=== PATIENT | female | born 1960 | race Caucasian/White ===

== ENCOUNTER 2022-01-08 13:33 | Outpatient (CLI) | payer OTHER, SELFPAY ==
[2022-01-08 18:10] LABS: SARS PCR* Negative SARS-CoV-2 (Negative)
== END 2022-01-08 13:34 | disposition home or self-care (01) ==
LOC: LONREF 13:34
PROVIDERS: PCP Family Medicine; Visit Provider Family Medicine
DX: Z11.52 Encounter for screening for COVID-19 (principal); R10.9 Unspecified abdominal pain
CPT/HCPCS: 87635

== ENCOUNTER 2022-02-01 09:13 | Outpatient (CLI) | payer OTHER, SELFPAY ==
--- NOTE | 2022-02-01 09:15 | CRLHL7_ITS ---
For Patients: As a result of the Century Cures Act, medical imaging exams and procedure reports are released immediately into your electronic medical record. You may view this report before your referring provider. If you have questions, please contact your health care provider. BILATERAL SCREENING MAMMOGRAM WITH COMPUTER-AIDED DETECTION AND TOMOSYNTHESIS TECHNIQUE: CC and MLO views were obtained. These mammographic images have been obtained using full-field digital technique. These mammographic images were interpreted with the benefit of computer-aided detection. Breast Tomosynthesis was used in this interpretation. COMPARISON FILM: 12/29/20, 12/24/19, 12/22/18. FINDINGS: The breasts are heterogeneously dense, which may obscure small masses IMPRESSION: There is no radiographic evidence for malignancy. ASSESSMENT: BI-RADS Category 2: Benign RECOMMENDATION: Routine screening mammogram in 1 year. A lay language report of this examination will be provided to the patient. Eliazar Angel M.D. Diagnostic Radiologist [email or web address] CALIN/Dictated by: Eliazar Angel MD @ 02/01/2022 11:41:00 AM (Electronically Signed)
--- OUTSIDE RECORDS SUMMARY | 2022-02-01 09:16 | XMS_ITS | Clinical Summary ---
:1960 Author Organization [facility] [place] [address] Care Team Providers Name Role Phone Mt Godinez MD Primary Care Provider Allergies Not on File Medications Medication Sig Dispensed Refills Start Date End Date Status atenolol (TENORMIN) 50 Take 50 mg by 0 07/15/2018 Active mg tablet mouth one time. atorvastatin (LIPITOR) Take 20 mg by 0 07/08/2018 Active 20 mg tablet mouth once daily. chlorthalidone Take 25 mg by 0 03/18/2018 Active (HYGROTON) 25 mg tablet mouth once daily. Taking half a pill per day anastrozole (ARIMIDEX) 1 Take 1 mg by 0 09/09/2018 Active mg tablet mouth once daily. levothyroxine Take 50 tablets 0 07/14/2018 Active (SYNTHROID) 50 mcg by mouth once tablet daily. zolpidem (AMBIEN) 5 mg Take 5 mg by 0 Active tablet mouth one time if needed. Active Problems Not on file Social History Tobacco Use Types Packs/Day Years Used Date Never Smoker Smokeless Tobacco: Never Used Tobacco Cessation: Counseling Given: Yes Sex Assigned at Date Recorded Not on file Obstetrics History Last Filed Vital Signs Vital Sign Reading Time Taken Comments Blood Pressure 138/71 09/10/2018 8:54 AM CDT Pulse 56 09/10/2018 8:54 AM CDT Temperature - - Respiratory Rate - - Oxygen Saturation 97% 09/10/2018 8:54 AM CDT Inhaled Oxygen Concentration - - Weight 93 kg (205 lb) 09/10/2018 8:54 AM CDT Height - - Body Mass Index - - Plan of Treatment Health Maintenance Due Date Last Done Comments COVID-19 vaccine series (#1) 1960 Tdap 1969 Depression screening for age 12+ 1970 BMI (ht and wt on same day) for age 1002/11/1976 18+ Hepatitis C screening for age 18-79 02/11/1976 Tetanus booster 1978 Colonoscopy through age 75 2003 Lipids for age 45-75 2003 Mammogram for age 45-75 08/27/2007 08/26/2006, 09/20/2005, 08/23/2005 Zoster (shingles) series for age 50+ 02/11/2008 (1 of 2) Pap test for age 21-65 03/27/2021 03/27/2018, 03/27/2018, 12/02/2014 Influenza for age 50-64 12/14/2021 Results Not on filefrom Last 3 Months Insurance Payer Benefit Plan / Subscriber ID Effective Dates Phone Addre ss Type Group PREFERRED ONE PREFERRED ONE [id number] 2013-Present [address] [place] [address] [employer] LINK TPA [id number] [phone] [place] [address] Care Teams Sandblast Or Shotblast Equipment Tender Relationship Specialty Start Date End Date Mt Godinez MD PCP - General Family Practice 02/06/16
== END 2022-02-01 09:14 | disposition home or self-care (01) ==
LOC: MAMMO 09:14
PROVIDERS: PCP Family Medicine; Visit Provider Family Medicine
DX: Z12.31 Encounter for screening mammogram for malignant neoplasm of breast (principal); R92.2 Inconclusive mammogram
CPT/HCPCS: 77063; 77067

== ENCOUNTER 2022-03-12 13:11 | Outpatient (CLI) | payer OTHER, SELFPAY ==
--- OUTSIDE RECORDS SUMMARY | 2022-03-12 13:21 | XMS_ITS | Clinical Summary ---
:1960 Author Organization [facility] [place] [address] Care Team Providers Name Role Phone Mt [...] 1969 Depression screening for age 12+ 1970 HIV for age 15-65 1973 BMI (ht and wt on same day) [...] ss Type Group PREFERRED ONE PREFERRED ONE [id number] 2013-Present [address] [place] [address] [employer] LINK TPA [id number] [address] [phone] [place] [address] Care Teams Pin Ticket Machine Operator Relationship Specialty Start Date End Date Mt Godinez MD PCP - General Family Practice 02/06/16
[2022-03-12 17:44] LABS: Albumin* 4.5 g/dL (3.3-5.0); Chloride* 108 mmol/L (96-114); Potassium* 4.2 mmol/L (3.6-5.1); Sodium* 142 mmol/L (135-149)
[2022-03-12 17:46] LABS: Bilirubin Total* 0.8 mg/dL (0.1-1.5); Creatinine* 0.6 mg/dL (0.5-1.5); Estimated Glomerular Filt Rate 100 ml/min
[2022-03-12 17:47] LABS: Alanine Aminotransferase* 29 U/L (4-35); Alkaline Phosphatase* 98 U/L (40-150); Aspartate Amino Transferase* 30 U/L (12-35); Blood Urea Nitrogen* 25 mg/dL (7-30); Carbon Dioxide* 26 mmol/L (20-32); Glucose* 96 mg/dL (60-115); Total Protein* 6.8 g/dL (6.0-8.3)
[2022-03-12 17:48] LABS: Calcium* 9.8 mg/dL (8.4-10.6)
[2022-03-12 18:04] LABS: Vitamin D 25 Hydroxy* 26 ng/mL (30-80)
== END 2022-03-12 13:12 | disposition home or self-care (01) ==
PROVIDERS: PCP Family Medicine; Visit Provider Nurse Practitioner Family
DX: C50.919 Malignant neoplasm of unspecified site of unspecified female breast (principal)
CPT/HCPCS: 80053; 82306

== ENCOUNTER 2022-03-26 07:54 | Outpatient (CLI) | payer OTHER, SELFPAY ==
--- OUTSIDE RECORDS SUMMARY | 2022-03-26 07:57 | XMS_ITS | Clinical Summary ---
:1960 Author Organization [facility] [place] [address] Care Team Providers Name Role Phone Mt [...] Tobacco Use Types Packs/Day Years Used Date Smoking Tobacco: Never Smokeless Tobacco: Never Tobacco Cessation: Counseling Given: Yes Sex Assigned [...] ss Type Group PREFERRED ONE PREFERRED ONE [id number] 2013-Present [address] [place] [address] [employer] LINK TPA [id number] [address] [phone] [place] [address] Care Teams Catering And Events Manager Relationship Specialty Start Date End Date Mt Godinez MD PCP - General Family Practice 02/06/16
[2022-03-26 14:01] LABS: Cholesterol* 177 mg/dL (90-199)
[2022-03-26 14:02] LABS: HDL Cholesterol* 46 mg/dL (>=50); LDL Cholesterol Calculated 98 mg/dL (<100); Triglycerides* 163 mg/dL (40-149)
== END 2022-03-26 07:55 | disposition home or self-care (01) ==
PROVIDERS: PCP Family Medicine; Visit Provider Family Medicine
DX: E03.9 Hypothyroidism, unspecified (principal); E78.5 Hyperlipidemia, unspecified
CPT/HCPCS: 80061; 84443

== ENCOUNTER 2022-04-11 06:27 | Day surgery (SDC) | payer OTHER, SELFPAY ==
[2022-04-11] VITALS (11 sets, daily range): BP systolic 128–179; BP diastolic 67–93; PULSE 60–72; RESP 16; TEMP 36.3–37; O2SAT 97–100
[2022-04-11] MEDS: lidocaine HCL 2 % MULTIDOSE 20 ML VIAL INJECTION (07:31)
[2022-04-11] MEDS: BUPIVACAINE 0.5% 30 ML 10 ML INJECTION (07:31)
--- NOTE | 2022-04-11 08:11 | P.ORPRC_ITS ---
Procedure Note Date of procedure: 04/11/22 Procedure: Preop diagnosis: Left upper extremity de quervain's tenosynovitis Postop diagnosis: Left upper extremity de Quervain tenosynovitis Procedure: Left upper extremity 1st dorsal compartment release Anesthesia: Local Surgeon: Federico Gaxiola MD assistant women's soccer coach: ZULMA Ruiz EBL: 0 mL Complications: None Specimens: None Drains: None Indications: The patient has a history of left upper extremity de Quervain tenosynovitis. Despite appropriate nonoperative management consisting of bracing, activity modification, injections and occupational therapy they continue to have symptoms. Operative intervention was offered. The risks, benefits alternatives and expected outcomes were discussed in detail. These included but were not limited to: Infection, bleeding, injury to blood vessel or nerve, venous thromboembolism. All questions were answered to their satisfaction. The patient was placed supine on the operating room table. Local anesthesia was established with 0.5% Marcaine without epinephrine and 2% lidocaine without epinephrine. The hand was prepped and draped in usual sterile fashion. The limb was elevated the forearm pneumatic tourniquet was inflated to 250 mm of mercury. A longitudinal incision was made centered over the 1st dorsal compartment. Subcutaneous dissection was taken with tenotomy scissors to the extensor retinaculum. The retinaculum was divided longitudinally with the 15 blade. There is a significant amount of inflamed tenosynovium surrounding the tendons. This was aggressively debrided with the tenotomy scissors. A portion of the dorsal retinaculum was excised. There were no septae a dividing the compartment. The wound was irrigated with normal saline. Subcutaneous tissues were closed with a 3-0 Vicryl, skin was closed with a 4-0 Stratafix. Glue was used to seal the skin. The tourniquet was released A soft dressing was applied, sponge and needle counts were correct x 2. The patient tolerated the procedure well, there were no apparent complications. They were sent to same day surgery in satisfactory condition. Plan: Use of the hand as tolerates. Discontinue the intraoperative dressing on postoperative day 3 and may get the wound wet as tolerates. She can use her thumb spica brace as needed for pain. Follow up in the office in 1-2 weeks for a wound check and suture removal.
== END 2022-04-11 08:45 | disposition home or self-care (01) ==
PROVIDERS: PCP Family Medicine; Visit Provider Orthopaedic Surgery
PROC: (CPT 25000; principal; 2022-04-11 07:30)
DX: M65.4 Radial styloid tenosynovitis [de Quervain] (principal)
CPT/HCPCS: 25000; A4580; J3490

== ENCOUNTER 2022-10-22 11:54 | Outpatient (CLI) | payer OTHER, SELFPAY | END 2022-10-22 11:55 | disposition home or self-care (01) | PROVIDERS: PCP Family Medicine; Visit Provider Internal Medicine Hematology & Oncology | DX: I10 Essential (primary) hypertension (principal); E78.5 Hyperlipidemia, unspecified; E03.9 Hypothyroidism, unspecified; E55.9 Vitamin D deficiency, unspecified | CPT/HCPCS: 80053; 82306; 82652 ==

== ENCOUNTER 2022-10-25 08:50 | Outpatient (RCR) | payer OTHER, SELFPAY ==
--- NOTE | 2023-01-10 13:09 | ONC.NURNOTE ---
Dexa scan results reviewed by Tania WASHBURN. Normal bone density.
== END 2023-04-23 23:59 | disposition home or self-care (01) ==
LOC: CCIC 08:50
PROVIDERS: PCP Family Medicine; Visit Provider Physician Assistant
DX: C50.912 Malignant neoplasm of unspecified site of left female breast (principal); Z17.0 Estrogen receptor positive status [ER+]; Z79.811 Long term (current) use of aromatase inhibitors; E55.9 Vitamin D deficiency, unspecified
CPT/HCPCS: 99212; 99215

== ENCOUNTER 2022-12-13 12:29 | Outpatient (CLI) | payer OTHER, SELFPAY ==
--- NOTE | 2022-12-13 13:00 | CRLHL7_ITS ---
For Patients: As a result of the Century Cures Act, medical imaging exams and procedure reports are released immediately into your electronic medical record. You may view this report before your referring provider. If you have questions, please contact your health care provider. DXA BONE MINERAL DENSITY STUDY Reason for exam: Monitor on aromatase inhibitors. Current height (in): 64. Weight (lb): 199. Menopause age: 53. Ethnicity: White. 1. Have you had a previous hip or vertebral fracture? No. 2. Have you had any fractures during your adult life which did not result from significant trauma (e.g., auto accident)? No. 3. Did either of your parents have a hip fracture? No. 4. Do you smoke? No. 5. Have you ever taken Glucocorticoids? No. 6. Do you have rheumatoid arthritis? No. 7. Do you have secondary osteoporosis? No. 8. Do you drink 3 or more alcoholic drinks per day? No. 9. Are you being treated for osteoporosis? No. 10. Have you ever taken any of the following medications: Actonel, Evista, Fosamax, Miacalcin, Reclast, Boniva, Forteo, HRT (i.e., estrogen/hormone therapy), Protelos, Prolia, Vitamin D, Calcium, other ??? please specify. ANSWER: Yes, vitamin D and calcium. 11. Do you have any of the following medical conditions: Anorexia or bulimia, asthma or emphysema, end stage renal disease, hyperparathyroidism, any seizure disorders, cancer, inflammatory bowel diseases, hysterectomy, other ??? please specify. ANSWER: Yes, cancer. 12. What was your maximum height (inches)? 64. 13. Do you perform weight bearing exercise regularly? Yes. 14. Do you regularly consume dairy products? Yes. 15. Do you drink caffeinated beverages? No. If female: 16. At what age did your period start? 11. 17. Are you premenopausal? No. 18. How many full-term pregnancies have you had? 3. 19. Have you ever missed your period for more than 6 months in a row (not including or menopause)? Yes. TECHNIQUE: Bone mineral density study was performed using the Cardiocore Wi. FINDINGS: The results of the study expressed as bone mineral density (BMD) are as follows: Lumbar spine L1 to L3: BMD: 1.081 g/cm2. T-score: 0.6. Z-score: 2.3 Neck Left: BMD: 0.772 g/cm2. T-score: -0.7. Z-score: 0.8 Right: BMD: 0.783 g/cm2. T-score: -0.6. Z-score: 0.9 Total Left: BMD: 0.980 g/cm2. T-score: 0.3. Z-score: 1.5 Right: BMD: 0.971 g/cm2. T-score: 0.2. Z-score: 1.4 IMPRESSION: Normal bone density. *Comparison exams done prior to 09/2019 were performed on different unit, Neptune. COMPARISON: Compared with scan of 09/01/2020, the bone mineral density has increased by 1.5 percent at the spine and decreased by 2.1 percent at the hip. Compared with scan of 06/16/2018, the bone mineral density has decreased by 2.0 percent at the spine and decreased by 4.9 percent at the hip. Eliazar Angel M.D. Diagnostic Radiologist [email or web address] DELMA/tapan phelan/Dictated by: Eliazar Angel MD @ 12/13/2022 2:53:00 PM (Electronically Signed)
== END 2022-12-13 12:30 | disposition home or self-care (01) ==
LOC: RAD 12:31
PROVIDERS: PCP Family Medicine; Visit Provider Physician Assistant
DX: Z51.81 Encounter for therapeutic drug level monitoring (principal); Z79.811 Long term (current) use of aromatase inhibitors
CPT/HCPCS: 77080

== ENCOUNTER 2023-01-24 09:53 | Outpatient (CLI) | payer OTHER, SELFPAY ==
--- NOTE | 2023-01-24 10:15 | CRLHL7_ITS ---
For Patients: As a result of the Century Cures Act, medical imaging exams and procedure reports are released immediately into your electronic medical record. You may view this report before your referring provider. If you have questions, please contact your health care provider. BILATERAL SCREENING MAMMOGRAM WITH COMPUTER-AIDED DETECTION AND TOMOSYNTHESIS TECHNIQUE: CC and MLO views were obtained. These mammographic images have been obtained using full-field digital technique. These mammographic images were interpreted with the benefit of computer-aided detection. Breast tomosynthesis was used in this interpretation. COMPARISON FILM: 02/01/2022, 12/29/2020, 12/24/2019. FINDINGS: There are scattered areas of fibroglandular density. IMPRESSION: There is no radiographic evidence for malignancy. ASSESSMENT: BI-RADS Category 2: Benign RECOMMENDATION: Routine screening mammogram in 1 year. A lay language report of this examination will be provided to the patient. ELIAZAR LUIS M.D. Diagnostic Radiologist [email or web address] DELMA/brandon Transcribed: 01/24/2023, 6:[address]/Dictated by: Eliazar Luis MD @ 01/24/2023 1:34:00 PM (Electronically Signed)
== END 2023-01-24 09:54 | disposition home or self-care (01) ==
LOC: MAMMO 09:53
PROVIDERS: PCP Family Medicine; Visit Provider Family Medicine
DX: Z12.31 Encounter for screening mammogram for malignant neoplasm of breast (principal)
CPT/HCPCS: 77063; 77067

== ENCOUNTER 2023-02-19 13:12 | Outpatient (CLI) | payer OTHER, SELFPAY | END 2023-02-19 13:13 | disposition home or self-care (01) | PROVIDERS: PCP Family Medicine; Visit Provider Family Medicine | DX: I10 Essential (primary) hypertension (principal); E78.5 Hyperlipidemia, unspecified; E03.9 Hypothyroidism, unspecified; E55.9 Vitamin D deficiency, unspecified; E78.00 Pure hypercholesterolemia, unspecified; Z13.21 Encounter for screening for nutritional disorder | CPT/HCPCS: 80061; 82607; 84443 ==

== ENCOUNTER 2024-01-28 10:35 | Outpatient (CLI) | payer MEDICARE, BC, SELFPAY ==
--- OUTSIDE RECORDS SUMMARY | 2024-01-29 10:27 | XMS_ITS ---
Author Organization [facility] Address [address] [place] [address] Care Team Providers Care Medical Record Transcriber Name Role Phone Unavailable Unavailable Unavailable Surgery Details Not on file Complications Check Surgery Details section. Procedure Estimated Blood Loss Check Surgery Details section. Procedure Findings Check Surgery Details section. Procedure Specimens Taken Check Surgery Details section.
--- OUTSIDE RECORDS SUMMARY | 2024-01-29 10:27 | XMS_ITS | Clinical Summary ---
Author Organization [facility] Address [address] [place] [address] Care Team Providers Care Office Mover Name Role Phone Elsewhere, Pcp Primary Care Provider Unavailabl e Source Comments Patient records contain information from all sites at [facility]. For routine questions regarding patient records, call [phone] during business hours, M-F 8:00 AM - 5:00 PM Central Time. Record requests for emergency care only can be directed to [phone] at any time.[facility] Allergies No known active allergies Medications [...] from 11/19/2017:Stage IA(pT1c, pN0(sn), cM0, G3, ER+, [place]+, HER2-, Oncotype DX score: 13) - Signed by Boris Rowan M.D. on 12/26/2017 Clinical: Unsigned Encounters Date Type Department Care Team Description 01/16/2024 11:28 AM CDT - 01/16/2024 12:48 PM CDT Emergency [facility] [address] [place] [address] Zoila Arreola, SOCIETY REPORTER, C.N.P. Infection Upper Respiratory Viral (Primary Dx); [...] Most Recently Relevant to Health Maintenance Insurance [facility] MEDICARE Care Teams Office Mover Relationship Specialty Start Date End Date Elsewhere, Pcp PCP - General Internal Medicine 01/16/24
--- OUTSIDE RECORDS SUMMARY | 2024-01-29 10:27 | XMS_ITS | Referral Summary ---
Author Organization [facility] Address [address] [place] [address] Care Team Providers Care Paint Technician Name Role Phone Elsewhere, Pcp Primary Care Provider Unavailabl e Source Comments Patient records contain information from all sites at [facility]. For routine questions regarding patient records, call [phone] during business hours, M-F 8:00 AM - 5:00 PM Central Time. Record requests for emergency care only can be directed to [phone] at any time.[facility] Encounters Date Type Department Care Team Description 01/16/2024 11:28 AM CDT - 01/16/2024 12:48 PM CDT Emergency [facility] [address] [place] [address] Zoila Arreola, ROSE, C.N.P. Infection Upper Respiratory [...] from 11/19/2017:Stage IA(pT1c, pN0(sn), cM0, G3, ER+, [place]+, HER2-, Oncotype DX score: 13) - Signed [...] MG Mammogram (11/08/2017 10:20 AM CDT) Narrative IIME - 12/09/2017 9:24 AM CDT This order [...] System IMG BI PROCEDURES Final R esult IIME NA from Last 3 Months or Most Recently Relevant to Health Maintenance Insurance [facility] MEDICARE Care Teams Paint Technician Relationship Specialty Start Date End Date Elsewhere, Pcp PCP - General Internal Medicine 01/16/24
--- OUTSIDE RECORDS SUMMARY | 2024-01-29 10:27 | XMS_ITS ---
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 on 12/26/2017 Clinical: Unsigned Current [...] On Elapsed Days Session Dose Total Dose [id number] 01/31/2018 25 200 cGy 5,005 cGy
--- OUTSIDE RECORDS SUMMARY | 2024-01-29 10:27 | XMS_ITS | Clinical Summary ---
Author Organization [facility] Address [place], [place] [address] Care Team Providers Care Veneer Manufacturer Name Role Phone Mt Godinez MD Primary Care Provider [phone] Medications Medication Sig Dispensed Refills Start Date [...] Procedure Name Priority Date/Time Associated Diagnosis Comments ANTIQUE FURNITURE REPAIRER THIN PREP PAP SCREEN IMAGED Routine 03/27/2018 11:45 AM BLENDER / COOK XR MAMMO SCREENING BILATERAL (IA) Routine 08/26/2006 2:35 PM CDT Screening Mammogram Other from Last 3 Months or Most Recently Relevant to Health Maintenance Results * ANTIQUE FURNITURE REPAIRER THIN PREP PAP SCREEN IMAGED (03/27/2018 11:45 AM BLENDER / COOK) Case Report Gynecologic Cytology Report ? Case: [id number] ? Authorizing Provider: ??Consuelo Jason MD ? Collected: ? 03/27/2018 1145 ? First Screen: ?Anum Middleton ?Received: ?03/28/2018 1545 ? Specimen: ?ANTIQUE FURNITURE REPAIRER ThinPrep Vial Screening, Cervical/Vaginal ? 04/14/2018 2:09 PM [facility] [facility] ENTRDC LABORATORY INTERPRETATION/ RESULT NEGATIVE FOR INTRAEPITHELIAL LESION OR MALIGNANCY (NIL) (none) 04/14/2018 2:09 PM [facility] ENTRAL LABORATORY IMEN ADEQUACY Satisfactory for evaluation Endocervical component present 04/14/2018 2:09 PM [facility] EN[facility]AL LABOR[facility]ORY HPV REQUEST HPV and PAP 04/14/2018 2:09 PM [facility] Date of LMP 04/14/2018 2:09 PM [facility] EN[facility] LABORATORY Comment:>5years Last Pap Date 12/02/2014 04/14/2018 2:09 PM BLENDER / COOK [facility] ENTRAL LABORATORY Last Pap Result NIL 8 2:09 PM [facility] EN[facility]AL LABORATORY Menstrual Status 04/14/2018 2:09 PM [facility] EN[facility] LABOR[facility]ORY Comment:menopause Automated Review Successful 04/14/2018 2:09 PM [facility] EN[facility]AL LABORATORY Comment:Specimen processed s uccessfully by automated audit spec device, ThinPrep Imaging System, [employer] ANCILLARY TESTING ANTIQUE FURNITURE REPAIRER HPV Ordered, Please see separate report 04/14/2018 2:09 PM [facility] EN[facility]DC LABORATORY Note The pap test is a [...] lesions. Cytology is screened and interpreted at [facility], Central Laboratory - [address] [facility] [address] [address] and [facility] - [address]; [place] [address] and [facility] - [address]; [place] [address] and [facility] [address]; [place] [address] 04/14/2018 2:09 PM BLENDER / COOK [facility] LABORATORY-C ENTRAL LABORATORY Other (Cervical/Vagina l) 03/27/2018 11:45 AM BLENDER / COOK 03/28/2018 3:45 PM BLENDER / COOK Consuelo Jason MD PATHOLOGY/CYTOLOGY [facility] LABORAT[facility]-CENTRAL LABORATORY [address] [place] [address], [place] * XR MAMMO SCREENING BILATERAL * (08/26/2006 2:35 PM CDT) Anatomical Region Laterality Modality BREASTS, Breast Left, Breast Right Bilateral Mammography 08/26/2006 2:35 PM CDT Narrative 08/27/2006 10:23 AM CDT SCREENING BILATERAL MAMMOGRAM CLINICAL INDICATIONS This is an asymptomatic 46-year-old patient. ?? FINDINGS The study is compared to a previous mammogram from [facility] dated 08/23/05. Mammographically, the breast tissue is average. There are no suspicious masses or branching calcifications that are suspicious for malignancy. IMPRESSION Benign finding. ??There is no radiographic evidence for malignancy. Recommend annual mammograms. The [facility] will provide results to the patient at the time of the appointment or by postcard through the mail. F Procedure Note Gibran Senior MD - 08/27/2006 SCREENING BILATERAL MAMMOGRAM CLINICAL INDICATIONS This is an asymptomatic 46-year-old patient. FINDINGS The study is compared to a previous mammogram from [facility] dated 08/23/05. Mammographically, the breast tissue is average. There are no suspiciousmasses or branching calcifications that are suspicious for malignancy. IMPRESSION Benign finding. There is no radiographic evidence for malignancy. Recommend annual mammograms. The [facility] will provide results to thepatient at the time of the appointment or by postcard through the mail. [facility] Humberto Ribeiro MD MAMMO from Last 3 Months or Most Recently Relevant to Health Maintenance Care Teams Veneer Manufacturer Relationship Specialty Start Date End Date Mt Godinez MD PCP - General Family Practice 02/06/16
--- OUTSIDE RECORDS SUMMARY | 2024-01-29 10:27 | XMS_ITS | Encounter Summary ---
Author Organization [facility] Address [address] [place] [address] Care Team Providers Care Instructional Systems Specialist Name Role Phone Elsewhere, Pcp Primary Care [...] Encounter Details Date Type Department Care Team ([facility] st Contact Info) Description 01/16/2024 11:28 AM CDT - 01/16/2024 12:48 PM CDT Emergency [facility] [address] [place] [phone] Zoila Arreola, TESTER WASTE DISPOSAL LEAKAGE, C.N.P. [address] [place] [phone] Infection Upper Respiratory Viral (Primary Dx); Cough [...] sent through Care Everywhere. * Cough Adult (Cambodian) documented in this encounter Medications at Time [...] for her grandchildren 1 of whom is [id number] this coming weekend. The following portions of [...] discussed and reviewed in AVS. Discharged from [facility] in stable condition. Zoila Arreola [...] oreffusions. IMPRESSION: Normal chest. Zoila M Maxwell TESTER WASTE DISPOSAL LEAKAGE, C.N.P. IMG DIAGNOSTIC IMAGI NG PROCEDURES Final Result documented in this encounter Visit Diagnoses Diagnosis Infection Upper Respiratory Viral- Primary Cough Acute Candidiasis Oral documented in this encounter Care Teams Instructional Systems Specialist Relationship Specialty Start Date End Date Elsewhere, Pcp PCP - General Internal Medicine 01/16/24 documented as of this encounter
== END 2024-01-28 10:36 | disposition home or self-care (01) ==
LOC: NFLDREF 01-29 10:25
PROVIDERS: PCP Family Medicine; Referring Provider Family Medicine; Visit Provider Family Medicine
DX: E78.5 Hyperlipidemia, unspecified (principal); I10 Essential (primary) hypertension; E55.9 Vitamin D deficiency, unspecified; E78.00 Pure hypercholesterolemia, unspecified; E03.9 Hypothyroidism, unspecified
CPT/HCPCS: 80053; 80061; 82306; 84443

== ENCOUNTER 2024-01-28 11:16 | Outpatient (CLI) | payer MEDICARE, BC, SELFPAY ==
--- OUTSIDE RECORDS SUMMARY | 2024-01-28 11:20 | XMS_ITS | Encounter Summary ---
Author Organization [facility] Address [address] [place] [address] Care Team Providers Care Ply Cutter Name Role Phone Elsewhere, Pcp Primary Care Provider Unavailabl e Reason for Visit * Reason Comments Cough Pt presents with sabra oing cough for 1 1/2 weeks. Pt states had temp to 101 on Saturday and Saturday. No fever today, denies chills. Cough is mostly bothersome at night. Pt did vomit last night after a large coughing jag Home Covid test done this morning and it was negative. No diarrhea or body aches. Encounter Details Date Type Department Care Team ([facility] st Contact Info) Description 01/16/2024 11:28 AM CDT - 01/16/2024 12:48 PM CDT Emergency [facility] [address] [place] [phone] Zoila Arreola, SERVICE SPRINKLER HELPER, C.N.P. [address] [place] [phone] Infection Upper Respiratory Viral (Primary Dx); Cough Acute; Candidiasis Oral Discharge Disposition: Home or Self Care Social History Tobacco Use Types Packs/Day Years Used Date Smoking Tobacco: Never Smokeless Tobacco: Never Tobacco Cessation:Counseling Given: Not Answered Nutrition Answer Date Recorded Nutrition: EVOO Fat Source 13 11/09 Nutrition: Servings of Fruits/Vegetables per Day Not on file 11/10/2019 Dental Answer Date Recorded Dental: Regular Dentist Unknown 06/23/19 21 Comments No Sex and Gender Information Value Date Recorded Sex Assigned at Not on file Legal Sex Female 10:14 AM CDT Gender Identity Female 12/06/2017 9:40 AM CDT Sexual Orientation Not on file documented as of this encounter Last Filed Vital Signs Vital Sign Reading Time Taken Comments Blood Pressure 135/78 01/16/2024 11:24 AM CDT Pulse 82 01/16/2024 11:24 AM CDT Temperature 36.7 ??C (98.1 ??F) 01/16/2024 11:24 AM C DT Respiratory Rate 16 01/16/2024 11:24 AM CDT Oxygen Saturation 97% 01/16/2024 11:24 AM CDT Inhaled Oxygen Concentration - - Weight 88.9 kg (196 lb) 01/16/2024 11:24 AM CDT Height 162.6 cm (5' 4) 01/16/2024 11:24 AM CDT Body Mass Index 33.64 01/16/2024 11:24 AM CDT documented in this encounter Discharge Instructions * Discharge Instructions* Zoila Arreola APRN, C.N.P. - 01/16/2024 12:29 PM CDT YOU WERE SEEN IN URGENT CARE TODAY. Follow up with primary care team OR RETURN TO URGENT CARE if symptoms fail to improve, if symptoms worsen or as needed for any concerns. * Attachments The following attachments cannot be sent through Care Everywhere. * Cough Adult (Latvian) documented in this encounter Medications at Time of Discharge anastrozole (ARIMIDEX) 1 mg tablet 12/23/2017 atenolol (TENORMIN) 50 mg tablet Take 50 mg by mouth daily. atorvastatin (Lipitor) 40 mg tablet Take 20 mg by mouth daily. calcium carbonate 1,500 mg (600 mg calcium) tablet Take 1,200 mg of calcium by mouth daily with breakfast. cetirizine (ZyrTEC) 10 mg chewable tablet Chew 10 mg daily. chlorthalidone (HYGROTEN) 25 mg tablet Take 12.5 mg by mouth daily. cholecalciferol (VITAMIN D3) 1,000 Unit capsule Take 1,000 Units by mouth daily. codeine-guaiFENe sin (Robitussin AC) 10-100 mg/5 mL liquid Take 5-10 mL by mouth every 6 (six) hours as needed for cough. May cause constipation. May cause narcotic addiction. May cause drowsiness. 120 mL 01/16/2024 fish oil 1,000 mg capsule Take 1,000 mg by mouth 3 (three) times a day. glucosamine-nell droitin (GLUCOSAMINE-CHO NDROITIN) 500-400 mg per capsule Take 1 capsule by mouth 3 (three) times a day. ibuprofen (ADVIL,MOTRIN) 400 mg tablet Take 400 mg by mouth every 4 (four) hours. levothyroxine sodium (TIROSINT) 50 mcg capsule Take 50 mcg by mouth daily. traMADol (ULTRAM) 50 mg tablet Take 50 mg by mouth every 6 (six) hours as needed for pain. zolpidem (AMBIEN) 5 mg tablet Take 5 mg by mouth at bedtime as needed for sleep. albuterol 90 mcg/actuation inhaler Inhale 2 puffs every 6 (six) hours as needed for wheezing. 18 g 01/16/2024 nystatin (Mycostatin) 100,000 unit/mL suspension Take 5 mL (500,000 Units total) by mouth 4 (four) times a day after meals and bedtime for 7 days. 140 mL 01/16/2024 01/23/2024 documented as of this encounter Progress Notes * Zoila Arreola, ROSE, C.N.P. - 01/16/2024 12:27 PM CDT SUBJECTIVE CHIEF COMPLAINT / REASON FOR VISIT Cough (Pt presents with ongoing cough for 1 1/2 weeks. Pt states had temp to 101 on Saturday and Saturday. No fever today, denies chills. Cough is mostly bothersome at night. Pt did vomit last night after a large coughing jag Home Covid test done this morning and it was negative. No diarrhea or body aches. ) HISTORY OF PRESENT ILLNESS Nikia Adames is a 63 y.o. female who presents for evaluation of cough. Patient reports cough over the past 1-1/2 weeks. Home COVID test today negative. Fever past 2 days. No fever today. No chillsor night sweats reported. Cough escalates at night. Wheezing only at night. No shortness a breath reported. No chest pain reported. Right ear pressure. Patient did note her tongue was white today. Tried skipping with toothbrush. Had been using excessive amounts of cough drops. Was exposed to impetigo and grandchildren. Is concerned as she is to be caring for her grandchildren 1 of whom is [id number] this coming weekend. The following portions of the patient's history were reviewed and updated as appropriate: Allergies, current medications, medical history. REVIEW OF SYSTEMS Pertinent items are noted in HPI; all other review of systems was negative. OBJECTIVE VITAL SIGNS BP 135/78 (BP Location: Left arm;Upper, Patient Position: Sitting) Pulse 82 Temp 36.7 ??C (Temporal) Resp 16 Ht 162.6 cm Wt 88.9 kg SpO2 97% BMI 33.64 kg/m?? PHYSICAL EXAMINATION Physical Exam General: Pleasant 63-year-old female with obvious cough in no acute distress. Skin: Warm dry and intact. Afebrile. Head: Minimal congestion in frontal, maxillary, nasal regions. Nose: Nares boggy, draining clear secretions. Throat: Tongue is thick white. Roof of mouth and posterior oropharynx beefy red lesions. Swallowingintact. Uvula active. Speech clear and understandable. Ears: Bulging pearly white tympanic membranes bilaterally. Right greater than left. Neck: Full and supple. No lymphadenopathy palpated. Full range of motion. Lungs: Clear to auscultation anterior and posterior throughout. Respirations nonlabored. Scattered right anterior wheeze clears with cough. Mental Status: Alert and oriented. Pleasant and cooperative. DIAGNOSTICS DX Chest AP or PA and Lateral 2 Views Result Date: 01/16/2024 Narrative: EXAM: DX CHEST AP OR PA AND LATERAL 2 VIEWS COMPARISON: None FINDINGS: Bony thorax is unremarkable. Heart size and pulmonary vascularity are within normal limits. Lungs are clear of infiltrates or effusions. Impression: Normal chest. Personally viewed images and agree with clinical exam. ASSESSMENT / PLAN Diagnosis Plan 1. Infection Upper Respiratory Viral Active 2. Cough Acute Active 3. Candidiasis Oral Active Reviewed use and side effects of medication. Reviewed extreme caution with use of cough syrup with codeine. Not to use Ambien when needing to use cough syrup. Discussed addiction and constipation. Do not operate vehicles. X-ray imaging is reassuring. No evidence of pneumonia or lower respiratory disease. Follow-up if symptoms fail to gradually improve over the next 3-7 days, certainly seek care sooner if symptoms would worsen. We did discuss strict return to care precautions. No further questions or concerns prior to discharge. Verbally agrees and understands today's plan of care. Patient is discharged in vitally stable independent condition. No further questions or concerns. Follow up as discussed and reviewed in AVS. Discharged from [facility] in stable condition. Zoila Arreola APRN, C.N.P. 01/16/24 1245 documented in this encounter Plan of Treatment Not on file documented as of this encounter Procedures Procedure Name Priority Date/Time Associated Diagnosis Comments DX CHEST AP OR PA AND LATERAL 2 VIEWS RAD - Semiurgent (Fast; most ED patients; some inpatients) 01/16/2024 11:51 AM CDT documented in this encounter Results * DX Chest AP or PA and Lateral 2 Views (01/16/2024 11:51 AM CDT) Anatomical Region Laterality Modality Chest, Thoracic RST LOS, Tho racic ARZ LOS, Thoracic FLA LOS N/A Digital Radiography Impressions 01/16/2024 12:03 PM CDT Normal chest. Narrative 01/16/2024 12:03 PM CDT EXAM: DX CHEST AP OR PA AND LATERAL 2 VIEWS COMPARISON: None FINDINGS: Bony thorax is unremarkable. Heart size and pulmonary vascularity are within normal limits. Lungs are clear of infiltrates or effusions. Procedure Note Jose R Gracia Jr., M.D. - 01/16/2024 EXAM: DX CHEST AP OR PA AND LATERAL 2 VIEWS COMPARISON: None FINDINGS: Bony thorax is unremarkable. Heart size and pulmonaryvascularity are within normal limits. Lungs are clear of infiltrates oreffusions. IMPRESSION: Normal chest. Zoila M Maxwell SERVICE SPRINKLER HELPER, C.N.P. IMG DIAGNOSTIC IMAGI NG PROCEDURES Final Result documented in this encounter Visit Diagnoses Diagnosis Infection Upper Respiratory Viral- Primary Cough Acute Candidiasis Oral documented in this encounter Care Teams Ply Cutter Relationship Specialty Start Date End Date Elsewhere, Pcp PCP - General Internal Medicine 01/16/24 documented as of this encounter
--- OUTSIDE RECORDS SUMMARY | 2024-01-28 11:20 | XMS_ITS | Referral Summary ---
Author Organization [facility] Address [address] [place] [address] Care Team Providers Care Public Employment Mediator Name Role Phone Elsewhere, Pcp Primary Care Provider Unavailabl e Source Comments Patient records contain information from all sites at [facility]. For routine questions regarding patient records, call [phone] during business hours, M-F 8:00 AM - 5:00 PM Central Time. Record requests for emergency care only can be directed to [phone] at any time.[facility] Encounters Date Type Department Care Team Description 01/16/2024 11:28 AM CDT - 01/16/2024 12:48 PM CDT Emergency [facility] [address] [place] [address] Zoila Arreola, ROSE, C.N.P. Infection Upper Respiratory Viral (Primary Dx); Cough Acute; Candidiasis Oral Discharge Disposition: Home or Self Care from Last 3 Months Allergies No known active allergies Medications atenolol (TENORMIN) 50 mg tablet Take 50 mg by mouth daily. Active chlorthalidone (HYGROTEN) 25 mg tablet Take 12.5 mg by mouth daily. Active levothyroxine sodium (TIROSINT) 50 mcg capsule Take 50 mcg by mouth daily. Active traMADol (ULTRAM) 50 mg tablet Take 50 mg by mouth every 6 (six) hours as needed for pain. Active calcium carbonate 1,500 mg (600 mg calcium) tablet Take 1,200 mg of calcium by mouth daily with breakfast. Active cetirizine (ZyrTEC) 10 mg chewable tablet Chew 10 mg daily. Active cholecalcifero l (VITAMIN D3) 1,000 Unit capsule Take 1,000 Units by mouth daily. Active fish oil 1,000 mg capsule Take 1,000 mg by mouth 3 (three) times a day. Active glucosamine-ch ondroitin (GLUCOSAMINE-C HONDROITIN) 500-400 mg per capsule Take 1 capsule by mouth 3 (three) times a day. Active ibuprofen (ADVIL,MOTRIN) 400 mg tablet Take 400 mg by mouth every 4 (four) hours. Active zolpidem (AMBIEN) 5 mg tablet Take 5 mg by mouth at bedtime as needed for sleep. Active anastrozole (ARIMIDEX) 1 mg tablet 8 Active atorvastatin (Lipitor) 40 mg tablet Take 20 mg by mouth daily. Active albuterol 90 mcg/actuation inhaler Inhale 2 puffs every 6 (six) hours as needed for wheezing. 18 g 4 Active codeine-guaiFE Nesin (Robitussin AC) 10-100 mg/5 mL liquid Take 5-10 mL by mouth every 6 (six) hours as needed for cough. May cause constipation . May cause narcotic addiction. May cause drowsiness. 120 mL 4 Active nystatin (Mycostatin) 100,000 unit/mL suspension Take 5 mL (500,000 Units total) by mouth 4 (four) times a day after meals and bedtime for 7 days. 140 mL 4 024 codeine-guaiFE Nesin (Robitussin AC) 10-100 mg/5 mL liquid Take 5-10 mL by mouth every 6 (six) hours as needed for cough. May cause constipation . May cause narcotic addiction. May cause drowsiness. 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 on 12/26/2017 Clinical: Unsigned Social History Tobacco Use Types Packs/Day Years [...] AM CDT Sexual Orientation Not on file Last Filed Vital Signs Vital Sign Reading [...] Mass Index 33.64 01/16/2024 11:24 AM CDT Plan of Treatment Not on file Procedures Procedure Name Priority Date/Time Associated Diagnosis Comments DX CHEST AP OR PA AND LATERAL 2 VIEWS RAD - Semiurgent (Fast; most ED patients; some inpatients) 01/16/2024 11:51 AM CDT OUTSIDE MG MAMMOGRAM Routine 11/08/2017 10:20 AM CDT from Last 3 Months or Most Recently Relevant to Health Maintenance Results * DX Chest AP or PA [...] of infiltrates oreffusions. IMPRESSION: Normal chest. Zoila Arreola APRN C.N.P. IMG DIAGNOSTIC IMAGI NG PROCEDURES Final Result * Outside MG Mammogram (11/08/2017 10:20 AM CDT) Narrative IIMT - 12/09/2017 9:24 AM CDT This order has been created and auto-finalized to support the import of outside images. If available, original interpretation can be found on the Media Tab in Chart Review, in Document Viewer, or as an image in QREADS. If a re-interpretation or overread is required please follow defined workflow. ?? us Provider Not In System IMG BI PROCEDURES Final R esult IIMT NA from Last 3 Months or Most Recently Relevant to Health Maintenance Insurance [facility] MEDICARE Care Teams Public Employment Mediator Relationship Specialty Start Date End Date Elsewhere, Pcp PCP - General Internal Medicine 01/16/24
--- OUTSIDE RECORDS SUMMARY | 2024-01-28 11:20 | XMS_ITS | Clinical Summary ---
Author Organization [facility] Address [address] [place] [address] Care Team Providers Care Pediatric Ophthalmologist Name Role Phone Elsewhere, Pcp Primary Care Provider Unavailabl e Source Comments Patient records contain information from all sites at [facility]. For routine questions regarding patient records, call [phone] during business hours, M-F 8:00 AM - 5:00 PM Central Time. Record requests for emergency care only can be directed to [phone] at any time.[facility] Allergies No known active allergies Medications atenolol [...] from 11/19/2017:Stage IA(pT1c, pN0(sn), cM0, G3, ER+, [place]+, HER2-, Oncotype DX score: 13) - Signed by Boris Rowan M.D. on 12/26/2017 Clinical: Unsigned Encounters Date Type Department Care Team Description 01/16/2024 11:28 AM CDT - 01/16/2024 12:48 PM CDT Emergency [facility] [address] [place] [address] Zoila Arreola, NET MANAGER, C.N.P. Infection Upper Respiratory Viral (Primary Dx); Cough Acute; Candidiasis Oral Discharge Disposition: Home or Self Care from Last 3 Months Social History Tobacco Use Types Packs/Day Years [...] 01/16/2024 11:24 AM CDT Plan of Treatment Health Maintenance Due Date Last Done Comments Bone Density Scan (Osteoporo sis Screen) 1958 CT Colonography 1958 Cologuard 1958 Colonoscopy 1958 Colorectal Cancer Screening 1958 Creatinine Level (Kidney Fun ction Test) 1958 FIT 1958 Fasting Glucose for Diabetes Screening 1958 HIV Screening 1958 Hepatitis C Screening 1958 Potassium Level 1958 Sodium Level 1958 Thyroid Stimulating Hormone (TSH) test for thyroid function 1958 Mammogram 11/08/2018 11/08/2017 Cervical Cancer Screening 03/27/2021 03/27/2018 Pneumococcal vaccine (65+ ye ars) (1 of 1 - PCV) 2023 Depression Screening (Annual PHQ-2) 04/15/2023 Fall Risk Screen (Annual) 04/15/2023 COVID-19 Vaccine (6 2023-2 5 season) 2023 01/24/2023, 02/01/2022, 01/27/2021, Additional history exists Influenza Vaccine (#1) 2024 , 01/16/2021, 01/28/2020, Additional history exists DTaP,Tdap,and Td Vaccines (3 - Td or Tdap) 03/22/2031 03/22/2021, 10/09/2010 Zoster Vaccines Completed 10/09/2019, 03/24/2019 Procedures Procedure Name Priority Date/Time Associated Diagnosis [...] clear of infiltrates oreffusions. IMPRESSION: Normal chest. us Zoila Arreola APRN, C.N.P. IMG DIAGNOSTIC IMAGI NG PROCEDURES Final Result * Outside MG Mammogram (11/08/2017 10:20 AM CDT) Narrative IIMS - 12/09/2017 9:24 AM CDT This order [...] System IMG BI PROCEDURES Final R esult IIMS NA from Last 3 Months or Most Recently Relevant to Health Maintenance Insurance [facility] MEDICARE Care Teams Pediatric Ophthalmologist Relationship Specialty Start Date End Date Elsewhere, Pcp PCP - General Internal Medicine 01/16/24
--- OUTSIDE RECORDS SUMMARY | 2024-01-28 11:20 | XMS_ITS ---
Author Organization [facility] Address [address] [place] [address] Care Team Providers Care Clinical Laboratory Science Professor Name Role Phone Unavailable Unavailable Unavailable Surgery Details Not on file Complications Check Surgery Details section. Procedure Estimated Blood Loss Check Surgery Details section. Procedure Findings Check Surgery Details section. Procedure Specimens Taken Check Surgery Details section.
--- OUTSIDE RECORDS SUMMARY | 2024-01-28 11:20 | XMS_ITS ---
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 on 12/26/2017 Clinical: Unsigned Current Oncology Plans No current plan information found. Past Plans No past plan information found. Radiation Treatments * Plan Last Treated On Elapsed Days Fractions Treated Prescribed Fraction Dose Prescribed Total Dose F16 Lbreast B 01/31/2018 25 5 of 5 200 cGy 1,000 cGy F1 P L breast 01/24/2018 18 15 of 15 267 cGy 4,005 cGy Reference Point Last Treated On Elapsed Days Session Dose Total Dose [id number] 01/31/2018 25 200 cGy 5,005 cGy
--- OUTSIDE RECORDS SUMMARY | 2024-01-28 11:21 | XMS_ITS | Clinical Summary ---
Author Organization [facility] Address [place], [place] [address] Care Team Providers Care Convention Worker Name Role Phone Mt Godinez MD Primary Care Provider [phone] Medications Medication Sig Dispensed Refills Start Date End Date Status atenolol (TENORMIN) 50 mg tablet Take 50 mg by mouth one time. 07/15/2018 Active atorvastatin (LIPITOR) 20 mg tablet Take 20 mg by mouth once daily. 07/08/2018 Active chlorthalidone (HYGROTON) 25 mg tablet Take 25 mg by mouth once daily. Taking half a pill per day 03/18/2018 Active anastrozole (ARIMIDEX) 1 mg tablet Take 1 mg by mouth once daily. 09/09/2018 Active levothyroxine (SYNTHROID) 50 mcg tablet Take 50 tablets by mouth once daily. 07/14/2018 Active zolpidem (AMBIEN) 5 mg tablet Take 5 mg by mouth one time if needed. Active Social History Tobacco Use Types Packs/Day Years Used Date Smoking Tobacco: Never Smokeless Tobacco: Never Tobacco Cessation:Counseling Given: Yes Sex and Gender Information Value Date Recorded Sex Assigned at Not on file Gender Identity Not on file Sexual Orientation Not on file Obstetrics History Last Filed [...] Health Maintenance Due Date Last Done Comments Tdap 1969 Depression screening for age 12+ 1970 HIV for age 15-65 1973 BMI (ht and wt on same day) for age 18+ 02/11/1976 Hepatitis C screening for age 18-79 02/11/1976 Tetanus booster 1978 Colonoscopy through age 75 2003 Lipids for age 45-75 2003 Mammogram for age 45-75 08/27/2007 08/27/19 07, 09/20/2005, 08/23/2005 Zoster (shingles) series for age 50+ (1 of 2) 02/11/2008 Pap test for age 21-65 03/27/2021 8, 03/27/2018, 12/02/2014 DEXA/DXA scan for age 65+ 2023 Pneumococcal series for age 65+ (1 of 1 - PCV) 2023 COVID-19 vaccine series (2023- season) 2023 Influenza for age 65+ 12/15/2023 Procedures Procedure Name Priority Date/Time Associated Diagnosis Comments TOWER TECHNICIAN THIN PREP PAP SCREEN IMAGED Routine 03/27/2018 11:45 AM GANG VIBRATOR OPERATOR XR MAMMO SCREENING BILATERAL (IA) Routine 08/26/2006 2:35 PM CDT Screening Mammogram Other from Last 3 Months or Most Recently Relevant to Health Maintenance Results * TOWER TECHNICIAN THIN PREP PAP SCREEN IMAGED (03/27/2018 11:45 AM GANG VIBRATOR OPERATOR) Case Report Gynecologic Cytology Report ? Case: [id number] ? Authorizing Provider: ??Consuelo Jason MD ? Collected: ? 03/27/2018 1145 ? First Screen: ?Anum Middleton ?Received: ?03/28/2018 1545 ? Specimen: ?TOWER TECHNICIAN ThinPrep Vial Screening, Cervical/Vaginal ? 04/14/2018 2:09 PM [facility] [employer] [facility] INTERPRETATION/ RESULT NEGATIVE FOR INTRAEPITHELIAL LESION OR MALIGNANCY (NIL) (none) 04/14/2018 2:09 PM [facility] IMEN ADEQUACY Satisfactory for evaluation Endocervical component present 04/14/2018 2:09 PM [facility] HPV REQUEST HPV and PAP 04/14/2018 2:09 PM [facility] Date of LMP 04/14/2018 2:09 PM [facility] Comment:>5years Last Pap Date 12/02/2014 04/14/2018 2:09 PM GANG VIBRATOR OPERATOR [facility] Last Pap Result NIL 8 2:09 PM [facility] Menstrual Status 04/14/2018 2:09 PM [facility] Comment:menopause Automated Review Successful 04/14/2018 2:09 PM [facility] Comment:Specimen processed s uccessfully by automated credit coordinator device, ThinPrep Imaging System, [employer] ANCILLARY TESTING TOWER TECHNICIAN HPV Ordered, Please see separate report 04/14/2018 2:09 PM [facility] Note The pap test is a screening technique, not a diagnostic procedure. ??It is used primarily to screen for squamous cancers and precursor lesions. ??Published studies have shown that it is subject to both false negative and false positive results. ??The pap test should not be used as the sole means to diagnose or exclude pre-malignant and malignant lesions. Cytology is screened and interpreted at [facility] - [address] [facility] [address] [address] and [facility] - [address]; [place] [address] and [facility] - [address]; [place] [address] and [facility] [address]; [place] [address] 04/14/2018 2:09 PM GANG VIBRATOR OPERATOR [facility] [employer] publishing LABORATORY-C ENTRAL LABORATORY Other (Cervical/Vagina l) 03/27/2018 11:45 AM GANG VIBRATOR OPERATOR 03/28/2018 3:45 PM GANG VIBRATOR OPERATOR Consuelo Jason MD PATHOLOGY/CYTOLOGY [facility] LABORATORY [address] [place] [address], [place] * XR MAMMO SCREENING BILATERAL * (08/26/2006 2:35 PM CDT) Anatomical Region Laterality Modality BREASTS, Breast Left, Breast Right Bilateral Mammography 08/26/2006 2:35 PM CDT Narrative 08/27/2006 10:23 AM CDT SCREENING BILATERAL MAMMOGRAM CLINICAL INDICATIONS This is an asymptomatic 46-year-old patient. ?? FINDINGS The study is compared to a previous mammogram from [facility] dated 08/23/05. Mammographically, the breast tissue is average. There are no suspicious masses or branching calcifications that are suspicious for malignancy. IMPRESSION Benign finding. ??There is no radiographic evidence for malignancy. Recommend annual mammograms. The [facility] will provide results to the patient at the time of the appointment or by postcard through the mail. F Procedure Note Gibran Senior MD - 08/27/2006 SCREENING BILATERAL MAMMOGRAM CLINICAL INDICATIONS This is an asymptomatic 46-year-old patient. FINDINGS The study is compared to a previous mammogram from [facility] dated 08/23/05. Mammographically, the breast tissue is average. There are no suspiciousmasses or branching calcifications that are suspicious for malignancy. IMPRESSION Benign finding. There is no radiographic evidence for malignancy. Recommend annual mammograms. The [facility] will provide results to thepatient at the time of the appointment or by postcard through the mail. [facility] Humberto Ribeiro MD MAMMO from Last 3 Months or Most Recently Relevant to Health Maintenance Care Teams Convention Worker Relationship Specialty Start Date End Date Mt Godinez MD PCP - General Family Practice 02/06/16
--- NOTE | 2024-01-28 11:30 | CRLHL7_ITS ---
For Patients: As a result of the Cures Act, medical imaging exams and procedure reports are released immediately into your electronic medical record. You may view this report before your referring provider. If you have questions, please contact your health care provider. BILATERAL SCREENING MAMMOGRAM WITH COMPUTER-AIDED DETECTION AND TOMOSYNTHESIS TECHNIQUE: CC and MLO views were obtained. These mammographic images have been obtained using full-field digital technique. These mammographic images were interpreted with the benefit of computer-aided detection. Breast Tomosynthesis was used in this interpretation. COMPARISON FILM: 01/24/23, 02/01/22, 12/29/20. FINDINGS: There are scattered areas of fibroglandular density IMPRESSION: There is no radiographic evidence for malignancy. ASSESSMENT: BI-RADS Category 2: Benign RECOMMENDATION: Routine screening mammogram in 1 year. A lay language report of this examination will be provided to the patient. Eliazar Angel M.D. Diagnostic Radiologist [email or web address] DELMA/tapan Transcribed: 3:32 p.mJuan phelan/Dictated by: Eliazar Angel MD @ 02/03/2024 11:13:00 AM (Electronically Signed)
== END 2024-01-28 11:17 | disposition home or self-care (01) ==
LOC: MAMMO 11:19
PROVIDERS: PCP Family Medicine; Visit Provider Family Medicine
DX: Z12.31 Encounter for screening mammogram for malignant neoplasm of breast (principal)
CPT/HCPCS: 77063; 77067

== ENCOUNTER 2024-02-17 13:34 | Outpatient (RCR) | payer MEDICARE, BC, SELFPAY ==
--- NOTE | 2024-02-26 11:34 | ONC.NURNOTE ---
Breast Cancer Index testing requested via online portal. Once results are available, Tania Vargas PA-C will call patient to discuss results and plan of care.
== END 2024-08-15 23:59 | disposition home or self-care (01) ==
LOC: CCIC 13:34
PROVIDERS: PCP Family Medicine; Visit Provider Internal Medicine Hematology & Oncology
DX: C50.912 Malignant neoplasm of unspecified site of left female breast (principal); Z17.0 Estrogen receptor positive status [ER+]; Z79.811 Long term (current) use of aromatase inhibitors; Z51.81 Encounter for therapeutic drug level monitoring; E55.9 Vitamin D deficiency, unspecified
CPT/HCPCS: 99214; G0463

== ENCOUNTER 2024-03-11 08:35 | Outpatient (CLI) | payer MEDICARE, BC, SELFPAY ==
--- OUTSIDE RECORDS SUMMARY | 2024-03-13 12:53 | XMS_ITS ---
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
--- OUTSIDE RECORDS SUMMARY | 2024-03-13 12:53 | XMS_ITS ---
Author Organization [facility] Address [address] [place] [address] Care Team Providers Care Cigar Packer And Sorter Name Role Phone Unavailable Unavailable Unavailable Surgery Details Not on file Complications Check Surgery Details section. Procedure Estimated Blood Loss Check Surgery Details section. Procedure Findings Check Surgery Details section. Procedure Specimens Taken Check Surgery Details section.
--- OUTSIDE RECORDS SUMMARY | 2024-03-13 12:53 | XMS_ITS | Referral Summary ---
Author Organization [facility] Address [address] [place] [address] Care Team Providers Care Sales Person Name Role Phone None Reported, Pcp Primary Care Provider Unavail able Source Comments Patient records contain information from all sites at [facility]. For routine questions regarding patient records, call [phone] during business hours, M-F 8:00 AM - 5:00 PM Central Time. Record requests for emergency care only can be directed to [phone] at any time.[facility] Encounters Date Type Department Care Team Description 01/16/2024 11:28 AM CDT - 01/16/2024 12:48 PM CDT Emergency [place] [facility] [address] [place] [phone] Zoila Arreola, ROSE, C.N.P. Infection Upper Respiratory [...] chewable tablet Chew 10 mg daily. Active cholecalciferol (VITAMIN D3) 1,000 Unit capsule Take 1,000 Units by mouth daily. Active fish oil 1,000 mg capsule Take 1,000 mg by mouth 3 (three) times a day. Active glucosamine-cho ndroitin (GLUCOSAMINE-CH ONDROITIN) 500-400 mg per capsule Take 1 capsule by mouth 3 (three) times a day. Active ibuprofen (ADVIL,MOTRIN) 400 mg tablet Take 400 mg by mouth every 4 (four) hours. Active zolpidem (AMBIEN) 5 mg tablet Take 5 mg by mouth at bedtime as needed for sleep. Active anastrozole (ARIMIDEX) 1 mg tablet 12/23/2017 Active atorvastatin (Lipitor) 40 mg tablet Take 20 mg by mouth daily. Active albuterol 90 mcg/actuation inhaler Inhale 2 puffs every 6 (six) hours as needed for wheezing. 18 g 01/16/2024 Active codeine-guaiFEN esin (Robitussin AC) 10-100 mg/5 mL liquid Take 5-10 mL by mouth every 6 (six) hours as needed for cough. May cause constipation. May cause narcotic addiction. May cause drowsiness. 120 mL 01/16/2024 Active Active Problems Problem Noted Date Diagnosed Date [...] 82 01/16/2024 11:24 AM CDT Temperature 36.7 C (98.1 F) 01/16/2024 11:24 AM CDT Respiratory Rate 16 01/16/2024 11:24 AM CDT [...] of infiltrates oreffusions. IMPRESSION: Normal chest. us Juarez Mitchell APRNNMaurice IMG DIAGNOSTIC IMAGI NG PROCEDURES Final Result [...] overread is required please follow defined workflow. us Provider Not In System IMG BI PROCEDURES Final R esult IIMS NA from Last 3 Months or Most Recently Relevant to Health Maintenance Insurance [facility] MEDICARE Care Teams Sales Person Relationship Specialty Start Date End Date None Reported, Pcp PCP - General 02/21/24
--- OUTSIDE RECORDS SUMMARY | 2024-03-13 12:53 | XMS_ITS | Clinical Summary ---
Author Organization [facility] Address [place], [place] [address] Care Team Providers Care Hand Silvering Supervisor Name Role Phone Mt Godinez MD Primary Care Provider [phone] Medications Medication Sig Dispensed Refills Start Date [...] for age 50+ (1 of 2) 02/11/2008 DEXA/DXA scan for age 65+ 2023 Pneumococcal series for age 65+ (1 of 1 - PCV) 2023 COVID-19 vaccine series ( - 2023- season) 2023 Influenza for age 65+ 12/15/2023 Procedures Procedure Name Priority Date/Time Associated Diagnosis Comments XR MAMMO SCREENING BILATERAL (IA) Routine 08/26/2006 2:35 PM CDT Screening Mammogram Other from Last 3 Months or Most Recently Relevant to Health Maintenance Results * XR MAMMO SCREENING BILATERAL * (08/26/2006 2:35 PM CDT) Anatomical Region Laterality Modality BREASTS, Breast Left, Breast Right Bilateral Mammography 08/26/2006 2:35 PM CDT Narrative 08/27/2006 10:23 AM CDT SCREENING BILATERAL MAMMOGRAM CLINICAL INDICATIONS This is an asymptomatic 46-year-old patient. FINDINGS The study is compared to a previous mammogram from [facility] dated 08/23/05. Mammographically, the breast tissue is average. There are no suspicious masses or branching calcifications that are suspicious for malignancy. IMPRESSION Benign finding. There is no radiographic evidence for malignancy. Recommend annual mammograms. The [facility] will provide results to the patient at the time of the appointment or by postcard through the mail. [facility] Procedure Note Gibran Senior MD - 08/27/2006 SCREENING BILATERAL MAMMOGRAM CLINICAL INDICATIONS This is an asymptomatic 46-year-old patient. FINDINGS The study is compared to a previous mammogram from [facility] dated 08/23/05. Mammographically, the breast tissue is average. There are no suspiciousmasses or branching calcifications that are suspicious for malignancy. IMPRESSION Benign finding. There is no radiographic evidence for malignancy. Recommend annual mammograms. The [facility] will provide results to thepatient at the time of the appointment or by postcard through the mail. [facility] Humberto Ribeiro MD MAMMO from Last 3 Months or Most Recently Relevant to Health Maintenance Care Teams Hand Silvering Supervisor Relationship Specialty Start Date End Date Mt Godinez MD PCP - General Family Practice 02/06/16
--- OUTSIDE RECORDS SUMMARY | 2024-03-13 12:53 | XMS_ITS | Encounter Summary ---
Author Organization [facility] Address [address] [place] [address] Care Team Providers Care Title Camera Operator Name Role Phone Elsewhere, Pcp Primary Care [...] Encounter Details Date Type Department Care Team ([facility] st Contact Info) Description 01/16/2024 11:28 AM CDT - 01/16/2024 12:48 PM CDT Emergency [facility] [address] [place] [phone] Zoila Arreola, ROSE, C.N.P. [address] [place] [phone] Infection Upper Respiratory Viral (Primary Dx); Cough [...] sent through Care Everywhere. * Cough Adult (Surinamese) documented in this encounter Medications at Time of Discharge albuterol 90 mcg/actuation inhaler Inhale 2 puffs every 6 (six) hours as needed for wheezing. 18 g 01/16/2024 anastrozole (ARIMIDEX) 1 mg tablet 12/23/2017 atenolol [...] mouth at bedtime as needed for sleep. nystatin (Mycostatin) 100,000 unit/mL suspension Take 5 mL (500,000 Units total) by mouth 4 (four) times a day after meals and bedtime for 7 days. 140 mL 01/16/2024 01/23/2024 documented as of this encounter Progress Notes * Zoila Arreola APRN, C.N.P. - 01/16/2024 12:27 PM CDT SUBJECTIVE [...] for her grandchildren 1 of whom is [id number] this coming weekend. The following portions of [...] discussed and reviewed in AVS. Discharged from [facility] in stable condition. Zoila Arreola [...] infiltrates oreffusions. IMPRESSION: Normal chest. Zoila Arreola APRN, C.N.P. IMG DIAGNOSTIC IMAGI NG PROCEDURES Final Result documented in this encounter Visit Diagnoses Diagnosis Infection Upper Respiratory Viral- Primary Cough Acute Candidiasis Oral documented in this encounter Care Teams Title Camera Operator Relationship Specialty Start Date End Date Elsewhere, Pcp PCP - General Internal Medicine 01/16/24 02/20/24 documented as of this encounter
--- OUTSIDE RECORDS SUMMARY | 2024-03-13 12:53 | XMS_ITS | Clinical Summary ---
Author Organization [facility] Address [address] [place] [address] Care Team Providers Care Marker Assembler Name Role Phone None Reported, Pcp Primary Care Provider Unavail able Source Comments Patient records contain information from all sites at [facility]. For routine questions regarding patient records, call [phone] during business hours, M-F 8:00 AM - 5:00 PM Central Time. Record requests for emergency care only can be directed to [phone] at any time.[facility] Allergies No known active allergies Medications atenolol [...] from 11/19/2017:Stage IA(pT1c, pN0(sn), cM0, G3, ER+, [place]+, HER2-, Oncotype DX score: 13) - Signed by Boris Rowan M.D. on 12/26/2017 Clinical: Unsigned Encounters Date Type Department Care Team Description 01/16/2024 11:28 AM CDT - 01/16/2024 12:48 PM CDT Emergency [place] [facility] Department [address] [place] [phone] Zoila Arreola, GUITAR TECHNICIAN, C.N.P. Infection Upper Respiratory Viral (Primary Dx); [...] Date Last Done Comments Bone Density Scan (Osteoporosis Screen) 1958 CT Colonography 1958 Cologuard 1958 Colonoscopy 1958 Colorectal Cancer Screening 1958 Creatinine Level (Kidney Function Test) 1958 FIT 1958 Fasting Glucose for Diabetes Screening 1958 Hepatitis C Screening 1958 Potassium Level 1958 Sodium Level 1958 Thyroid Stimulating Hormone (TSH) test for thyroid function 1958 Visit: Annual, age 65+ (or Medicare and <65) 1958 Visit: Medicare Annual Wellness 1958 Mammogram 11/08/2018 11/08/2017 Pneumococcal vaccine (65+ years) (1 of 1 - PCV) 2023 Depression Screening (Annual PHQ-2) 04/15/2023 Fall Risk Screen (Annual) 04/15/2023 COVID-19 Vaccine ( season) 2023 01/24/2023, 02/01/2022, 01/27/2021, Additional history exists Influenza Vaccine (#1) 2024 , 01/16/2021, 01/28/2020, Additional history exists DTaP,Tdap,and Td Vaccines (3 - Td or Tdap) 03/22/2031 03/22/2021, 10/09/2010 Cervical/Vaginal Cancer Screening Discontinued 03/27/2018 Zoster Vaccines Completed 10/09/2019, 03/24/2019 IPV Vaccines Aged Out No longer eligi ble based on patient's age to complete this topic Procedures Procedure Name Priority Date/Time Associated Diagnosis [...] Most Recently Relevant to Health Maintenance Insurance [facility] MEDICARE Care Teams Marker Assembler Relationship Specialty Start Date End Date None Reported, Pcp PCP - General 02/21/24
== END 2024-03-11 08:36 | disposition home or self-care (01) ==
PROVIDERS: PCP Family Medicine; Referring Provider Family Medicine; Visit Provider Family Medicine
DX: I10 Essential (primary) hypertension (principal); R73.01 Impaired fasting glucose
CPT/HCPCS: 80053

== ENCOUNTER 2024-12-24 10:20 | Outpatient (CLI) | payer MEDICARE, BC, SELFPAY | END 2024-12-24 10:21 | disposition home or self-care (01) | LOC: NFLDREF 12-29 07:32 | PROVIDERS: PCP Family Medicine; Referring Provider Family Medicine; Visit Provider Family Medicine | DX: I10 Essential (primary) hypertension (principal) | CPT/HCPCS: 80053 ==

== ENCOUNTER 2025-02-01 11:14 | Outpatient (CLI) | payer MEDICARE, BC, SELFPAY ==
--- NOTE | 2025-02-01 11:30 | CRLHL7_ITS ---
For Patients: As a result of the Century Cures Act, medical imaging exams and procedure reports are released immediately into your electronic medical record. You may view this report before your referring provider. If you have questions, please contact your health care provider. INDICATION: BILATERAL SCREENING MAMMOGRAM, ASYMPTOMATIC 64 Y/O FEMALE COMPARISON: 01/28/2024, 01/24/2023, 02/01/2022 TECHNIQUE: Digital mammogram in CC and MLO projections including computer-aided detection (CAD) and tomosynthesis. BREAST COMPOSITION: There are scattered areas of fibroglandular density. FINDINGS: No suspicious findings. ASSESSMENT: BI-RADS 2 Benign RECOMMENDATION: Annual screening mammogram. A lay language report of this examination will be provided to the patient. Dictated by: Eliazar Angle MD @ 02/01/2025 12:54:15 (Electronically Signed)
== END 2025-02-01 11:15 | disposition home or self-care (01) ==
LOC: MAMMO 11:14
PROVIDERS: PCP Family Medicine; Visit Provider Family Medicine
DX: Z12.31 Encounter for screening mammogram for malignant neoplasm of breast (principal)
CPT/HCPCS: 77063; 77067

== ENCOUNTER 2025-04-12 11:25 | Outpatient (CLI) | payer MEDICARE, BC, SELFPAY | END 2025-04-12 11:26 | disposition home or self-care (01) | LOC: NFLDREF 11:26 | PROVIDERS: PCP Family Medicine; Visit Provider Family Medicine | DX: E03.9 Hypothyroidism, unspecified; E78.5 Hyperlipidemia, unspecified; E55.9 Vitamin D deficiency, unspecified; I10 Essential (primary) hypertension | CPT/HCPCS: 80053; 80061; 82306; 84443 ==